=== PATIENT | male | born 1935 | race Caucasian/White ===

== ENCOUNTER 2017-09-14 07:45 | Day surgery (SDC) | payer OTHER ==
[~2017-09-14 07:45] MED LIST: ASPI81 PO; ATOR80TA41 PO; CALC-179 OR; CARV3.125 PO; FISH1000 PO; LISI-357 PO; PLAV75TA PO; TAB-TAB PO; TEMA30CA PO; VITA100017 PO; VITA200017 PO
[2017-09-14 08:25] VITALS: BP 120/81; PULSE 60; RESP 16; TEMP 97; O2SAT 99
[2017-09-14 09:45] VITALS: BP 131/75; PULSE 59; RESP 18; TEMP 97.9; O2SAT 99
[2017-09-14] MEDS ORDERED: LIDOCAINE HCL 1% 20 ML VIAL ONE (09:45)
[2017-09-14 09:58] VITALS: BP 133/81; PULSE 59; RESP 18; O2SAT 99
--- NOTE | 2017-09-14 14:56 | RADRPT ---
EXAM DATE/TIME: 09/14/2017 08:17 [place] COMPARISON: No previous studies available for comparison. INDICATIONS : Enlarged right groin lymph node. MEDICAL HISTORY : Hypertension. Osteoarthritis. Carcinoma, squamous cell. Cataracts. Coronary artery disease. Chest pa in. SURGICAL HISTORY : Tonsillectomy. CABG Right trigger, ring and middle finger surery. Knee arthroscopy. Excision skin le bernie. Herniorrhaphy. ENCOUNTER: Initial ACUITY: 2 months PAIN SCORE: 0/10 LOCATION: Right groin. ORGAN: Right lymph node SPECIMENS: Three core specimen(s) submitted for pathologic evaluation. DEVICE: 18 gauge Temno needle Post procedure scanning reveals no hematoma or other complication. The possibility does exist that the tissue obtained will be non-diagnostic. If the sample is non-jaz gnostic a repeat biopsy or surgical biopsy may need to be performed. TECHNIQUE: 1. Ultrasound guidance for needle biopsy. 2. Needle biopsy. The risks, benefits and alternatives to the procedure were explained and verbal and written consent w as obtained. The site was prepped in sterile fashion. Full sterile technique was used, including ca p, mask, sterile gloves and gown and a large sterile sheet. Hand hygiene and 2% chlorhexidine and/or betadine/alcohol prep was utilized per protocol for cutaneous antisepsis. The skin and subcutaneous tissues were infiltrated with local anesthetic solution. Sterile gel and sterile probe cover were u tilized for ultrasound guidance. With the patient on the ultrasound table, images were obtained. A needle was advanced into the identified target and the number of specimens as above obtained and myles bmitted for pathologic evaluation. The patient tolerated the procedure well and left the ultrasound suite in stable condition. CONCLUSION: Uncomplicated ultrasound guided needle biopsy of right groin lymph node. Gume Davison MD on September 14, 2017 at 14:54 Board Certified Radiologist. This report was verified electronically.
== END 2017-09-14 10:10 | disposition home or self-care (01) ==
LOC: HRAD 07:45 → HRIP 07:50 → HRAD 10:10
PROVIDERS: ATTEND Surgery
DX: R59.0 Localized enlarged lymph nodes (principal)
CPT/HCPCS: 38505; 76942; 88305; 88341; 88342

== ENCOUNTER 2017-10-31 12:43 | Day surgery (SDC) | payer OTHER ==
[2017-10-31 13:18] VITALS: BP 138/80; PULSE 78; RESP 16; TEMP 97.1; O2SAT 99
[2017-10-31 14:30] VITALS: BP_SYST 138; BP_SYST 144; BP_DIAS 82; BP_DIAS 83; PULSE 60; RESP 16; RESP 18; TEMP 97.8; O2SAT 99
--- NOTE | 2017-10-31 14:35 | PD.RAD ---
Post US Procedure Prog Note Pre Procedure Diagnosis: (1) Axillary lymphadenopathy (2) Lymphoma, T-cell Post Procedure Diagnosis: (1) Axillary lymphadenopathy (2) Lymphoma, T-cell Procedure Date: Oct 31, 2017 Supervising Radiologist: Bhanu Rasmussen Proceduralist/Assist: Michelle Nix RDMS Anesthesia: Local Plan of Activity Patient to Unit: ROPU Patient Condition: Good See PACS Report for procedural detail/treatment Biopsy Imaging Guidance: Ultrasound Side: Left Biopsy Procedure: Lymph Node Site: left axilla. Specimen: Core Biopsy Plan to ROPU then discharge in 30 minutes if no problems. Bhanu Rasmussen MD Oct 31, 2017 14:35
[2017-10-31] MEDS ORDERED: LIDOCAINE HCL 1% 20 ML VIAL ONE (14:42)
--- NOTE | 2017-10-31 14:44 | RADRPT ---
EXAM DATE: 10/31/2017 2:37 PM EDT AGE/SEX: 82 years / Male INDICATIONS: Left axillary lymph node. CLINICAL DATA: This is the patient's initial encounter. Patient reports that signs and symptoms have been present for 1 month and indicates a pain score of 0/10. MEDICAL/SURGICAL HISTORY: Hypertension. Osteoarthritis. Coronary artery disease. Tonsillecto my. CABG. Triple bypass. Finger surgery. Knee arthroscopy. Herniorrhaphy. COMPARISON: TLI, PET/CT TUMOR, 10/11/2017. . ORGAN: Left axillary. SPECIMEN(S): Five core specimen(s) submitted for pathologic evaluation. DEVICE(S): 18 gauge Temno needle Post procedure scanning reveals no hematoma or other complication. The possibility does exist that the tissue obtained will be non-diagnostic. If the sample is non-diag nostic, a repeat biopsy or surgical biopsy may need to be performed. TECHNIQUE: 1. Ultrasound guidance for needle biopsy. 2. Needle biopsy. 3. 4. . . The risks, benefits and alternatives to the procedure were explained and verbal and written consent w as obtained. The site was prepped in sterile fashion. Full sterile technique was used, including ca p, mask, sterile gloves and gown and a large sterile sheet. Hand hygiene and 2% chlorhexidine and/or betadine/alcohol prep was utilized per protocol for cutaneous antisepsis. The skin and subcutaneous tissues were infiltrated with local anesthetic solution. Sterile gel and sterile probe cover were u tilized for ultrasound guidance. With the patient on the ultrasound table, images were obtained. There is an enlarged lymph node in t he left axilla. It appears to be enlarged at the poles and correlates with the hypermetabolic lesion on PET imaging. The targeted area measures approximately 1.1 x 0.8 x 1.1 cm which represents one of t he upper poles of the enlarged lymph node. A needle was advanced into the enlarged lymph node and 5 core samples were obtained and submitted for pathologic evaluation. The patient tolerated the procedure well and left the ultrasound suite in stable condition. CONCLUSION: Uncomplicated left axillary lymph node biopsy, as above. Electronically signed by: Bhanu Rasmussen MD 10/31/2017 2:43 PM EDT
[2017-10-31 14:45] VITALS: BP 138/83; PULSE 60; RESP 16; O2SAT 99
[2017-10-31] MEDS ORDERED: ASCO500C (15:15)
[2017-10-31] MEDS ORDERED: CHOL10008 (15:15)
[2017-10-31] MEDS ORDERED: ASPI81CH6 CHEW (15:15)
[2017-10-31] MEDS ORDERED: MONT10TA4 PO (15:15)
[2017-10-31] MEDS ORDERED: TEMA30CA PO (15:15)
[2017-10-31] MEDS ORDERED: PLAV75TA29 PO (15:15)
[2017-10-31] MEDS ORDERED: ATOR80TA45 PO (15:15)
[2017-10-31] MEDS ORDERED: MULTTAB4 (15:15)
[2017-10-31] MEDS ORDERED: CALC1TAB87 PO (15:15)
[2017-10-31] MEDS ORDERED: CARV6.252 PO (15:15)
== END 2017-10-31 14:45 | disposition home or self-care (01) ==
LOC: HRIP 12:43 → HRAD 12:43
PROVIDERS: ATTEND Internal Medicine
DX: C84.44 Peripheral T-cell lymphoma, not elsewhere classified, lymph nodes of axilla and upper limb (principal); I10 Essential (primary) hypertension; I25.10 Atherosclerotic heart disease of native coronary artery without angina pectoris; M19.90 Unspecified osteoarthritis, unspecified site; Z95.1 Presence of aortocoronary bypass graft
CPT/HCPCS: 38505; 76942; 88307

== ENCOUNTER 2017-11-01 10:02 | Day surgery (SDC) | payer OTHER ==
[~2017-11-01] VITALS: Ht 185.4 cm; Wt 92.7 kg
[~2017-11-01 10:02] MED LIST changes: +ASCO500C; -ASPI81 PO; +ASPI81CH6 CHEW; -ATOR80TA41 PO; +ATOR80TA45 PO; -CALC-179 OR; +CALC1TAB87 PO; -CARV3.125 PO; +CARV6.252 PO; +CHOL10008; -FISH1000 PO; -LISI-357 PO; +MONT10TA4 PO; +MULTTAB4; -PLAV75TA PO; +PLAV75TA29 PO; -TAB-TAB PO; -VITA100017 PO; -VITA200017 PO
[2017-11-01] MEDS ORDERED: LIDOCAINE HCL 1% 10 ML VIAL SQ ONE (10:03)
[2017-11-01 10:26] VITALS: BP 125/72; PULSE 69; RESP 18; TEMP 98; O2SAT 97
[2017-11-01 10:44] LABS: AUTOMATED NEUTROPHIL # 2.6 TH/MM3 (1.8-7.7); BASOPHIL # 0.1 TH/MM3 (0-0.2); BASOPHIL % 1.2 % (0.0-2.0); EOSINOPHIL # 0.1 TH/MM3 (0-0.4); EOSINOPHIL % 1.9 % (0.0-4.0); HEMATOCRIT 46.1 % (39.0-51.0); HEMOGLOBIN 15.5 GM/DL (13.0-17.0); LYMPH % 26.5 % (9.0-44.0); LYMPHOCYTE # 1.2 TH/MM3 (1.0-4.8); MEAN CELL VOLUME 97.9 FL (80.0-100.0); MEAN CORPUSCULAR HGB CONC 33.7 % (32.0-36.0); MEAN PLATELET VOLUME 7.2 FL (7.0-11.0); MONO % 11.6 % (0.0-8.0); MONOCYTE # 0.5 TH/MM3 (0-0.9); NEUT % 58.8 % (16.0-70.0); PLATELET COUNT 181 TH/MM3 (150-450); RED BLOOD COUNT 4.71 MIL/MM3 (4.50-5.90); RED CELL DISTRIBUTION WIDTH 13.4 % (11.6-17.2); WHITE BLOOD COUNT 4.5 TH/MM3 (4.0-11.0)
[2017-11-01 10:56] LABS: PROTHROMBIN TIME - PATIENT 10.4 SEC (9.8-11.6)
[2017-11-01] MEDS ORDERED: SODIUM CHLOR 0.9% 1000 ML IV SCH (11:45)
[2017-11-01] MEDS ORDERED: MIDAZOLAM HCL 2 MG/2 ML VIAL ONE (12:15)
--- NOTE | 2017-11-01 12:56 | PD.RAD ---
Post CT Procedure Prog Note Pre Procedure Diagnosis: (1) Lymphoma, T-cell Post Procedure Diagnosis: (1) Lymphoma, T-cell Procedure Date: Nov 01, 2017 Supervising Radiologist: Bhanu Rasmussen Estimated blood loss: minimal . Anesthesia: Conscious Sedation Plan of Activity Patient to Unit: ROPU Patient Condition: Good See PACS Report for procedural detail/treatment Biopsy Imaging Guidance: CT Side: Left Biopsy Procedure: Bone Marrow Site: posterior iliac bone. Plan to ROPU then discharge in 2 hours. Bhanu Rasmussen MD Nov 01, 2017 12:56
[2017-11-01 13:00] VITALS: BP 108/67; PULSE 60; RESP 16; TEMP 97.6; O2SAT 98
[2017-11-01 13:15] VITALS: BP 106/67; PULSE 67; RESP 18; O2SAT 97
[2017-11-01 13:45] VITALS: BP 101/60; PULSE 56; RESP 16; O2SAT 96
--- NOTE | 2017-11-01 14:02 | RADRPT ---
EXAM DATE: 11/01/2017 1:40 PM EDT AGE/SEX: 82 years / Male INDICATIONS: T-cell lymphoma. CLINICAL DATA: This is the patient's initial encounter. Patient reports that signs and symptoms have been present for 1 day and indicates a pain score of 0/10. MEDICAL/SURGICAL HISTORY: Cardiovascular disease. Lymphoma. Hypertension. None. COMPARISON: No prior exams available for comparison. SEDATION TIME (min): 20 min BIOPSY SITE: Left bone marrow MEDICATION(S): 2.5 mg midazolam (Versed) IV 175mcg fentanyl (Sublimaze) IV DEVICE(S): 11 gauge Bone biopsy needle One . . PROCEDURE: CT guided Left bone marrow biopsy Prior to the procedure informed consent was obtained. Any appropriate prior imaging studies were rev iewed. Using automated exposure control and adjustment of the mA and/or kV according to patient size , radiation dose was kept as low as reasonably achievable to obtain optimal diagnostic quality images . DICOM format image data is available electronically for review and comparison. The site was prepped in a sterile fashion. Full sterile technique was used, including cap, mask, shan rile gloves and gown and a large sterile sheet. Hand hygiene and 2% chlorhexidine and/or betadine/al cohol prep was utilized per protocol for cutaneous antisepsis. The skin and subcutaneous tissues wer e infiltrated with local anesthetic solution. With CT guidance the left posterior iliac bone was localized. Biopsy was performed using the prescrib ed needle as above. Following biopsy marrow aspiration was performed with repeat puncture. Adequate hemostasis was obtained with compression at the puncture site. Conscious sedation was performed with the prescribed dosages and duration as above in the presence of an independent trained radiology nurse to assist in the monitoring of the patient. EKG and oximetry remained stable throughout the procedure. The patient tolerated the procedure well and there were no complications. The patient was sent to Radiology Outpatient Unit in stable condition. CONCLUSION: 1. Uncomplicated CT guided bone marrow aspirate. 2. Uncomplicated CT guided bone marrow biopsy. Electronically signed by: Bhanu Rasmussen MD 11/01/2017 2:01 PM EDT
[2017-11-01 14:15] VITALS: BP 106/62; PULSE 60; RESP 18; O2SAT 99
== END 2017-11-01 15:10 | disposition home or self-care (01) ==
LOC: HRAD 10:02 → HRIP 10:07 → HRAD 15:10
PROVIDERS: ATTEND Internal Medicine
DX: C84.44 Peripheral T-cell lymphoma, not elsewhere classified, lymph nodes of axilla and upper limb (principal); I10 Essential (primary) hypertension; I25.10 Atherosclerotic heart disease of native coronary artery without angina pectoris; Z95.1 Presence of aortocoronary bypass graft; Z79.02 Long term (current) use of antithrombotics/antiplatelets; Z79.82 Long term (current) use of aspirin
CPT/HCPCS: 38222; 77012; 85025; 85097; 85610; 85730; 88305; 88311; 88313; 99152; 99153; C1830; J2250; J3010

== ENCOUNTER → 2017-11-13 | Day surgery (SDC) | payer OTHER | END | disposition home or self-care (01) | LOC: HROP 05:57 | PROVIDERS: ATTEND Internal Medicine | DX: Z45.2 Encounter for adjustment and management of vascular access device (principal); C84.44 Peripheral T-cell lymphoma, not elsewhere classified, lymph nodes of axilla and upper limb; I10 Essential (primary) hypertension ==

== ENCOUNTER 2017-11-20 09:39 | Day surgery (SDC) | payer OTHER ==
[~2017-11-20] VITALS: Ht 185.4 cm; Wt 95.0 kg
[2017-11-20] MEDS ORDERED: CHLORHEXIDINE GLUCONATE 2 % 1 PACK (2 CLOTHS) TOPICAL PRN (10:45)
[2017-11-20] MEDS ORDERED: LACTATED RINGER'S 1000 ML IV PRN (10:45)
[2017-11-20] MEDS ORDERED: METOPROLOL TARTRATE 25 MG TAB PO PRN (10:45)
[2017-11-20] MEDS ORDERED: SODIUM CHLORID 0.9% 500 ML IV PRN (10:45)
[2017-11-20] MEDS ORDERED: POVIDONE IODINE 5% (ANTISEPSIS KIT) 4 APPLICATIONS EACH NARE PRN (10:45)
[2017-11-20] MEDS ORDERED: INSULIN HUMAN REGULAR 1,000 UNITS/10 ML VIAL SQ PRN (10:45)
[2017-11-20] MEDS ORDERED: ACETAMINOPHEN 1000 MG/100 ML 100 ML IV SCH (11:00)
[2017-11-20 13:12] VITALS: BP 124/77; PULSE 99; RESP 18; TEMP 97.6; O2SAT 100
[2017-11-20] MEDS ORDERED: fentaNYL CITRATE 250 MCG/5 ML AMP ONE (13:41)
[2017-11-20] MEDS ORDERED: MIDAZOLAM HCL 5 MG/5 ML VIAL ONE (13:41)
[2017-11-20] MEDS ORDERED: ceFAZolin 2 GM PREMIX 50 ML - implanted port/tunneled catheter insertion IV SCH (13:45)
[2017-11-20] MEDS ORDERED: VANCOMYCIN 1000 MG/NS 250 ML - implanted port/tunneled catheter IV SCH ×2 (13:45)
[2017-11-20] MEDS ORDERED: SODIUM CHLORIDE 0.9% 1000 ML IV SCH (13:45)
[2017-11-20] MEDS ORDERED: LIDOCAINE 1%/EPINEPHrine 1:100,000 SOLN 20 ML VIAL ONE (14:41)
[2017-11-20 15:30] VITALS: BP 134/82; PULSE 60; RESP 18; TEMP 97.7; O2SAT 97
[2017-11-20 15:45] VITALS: BP 125/76; PULSE 67; RESP 18; O2SAT 67
[2017-11-20 16:15] VITALS: BP 124/75; PULSE 60; RESP 18; O2SAT 96
--- NOTE | 2017-11-20 16:16 | PD.RAD ---
Post Procedure Progress Note Pre Procedure Diagnosis: (1) Lymphoma, T-cell Post Procedure Diagnosis: (1) Lymphoma, T-cell Procedure Date: Nov 20, 2017 Supervising Radiologist: Arnulfo Shipley Proceduralist/Assist: Leona Kapoor, RT(R)(CV), Shaquille Kurtz, RT(R) Anesthesia: Local, Analgesia, Conscious Sedation Plan of Activity Patient to Unit: ROPU Patient Condition: Good See PACS Report for procedural detail/treatment Central Venous Access Device Procedure 1 Right Internal Jugular Infusaport Placement single lumen Nepali: 8 Arnulfo Shipley MD Nov 20, 2017 16:16
[2017-11-20 16:45] VITALS: BP 126/72; PULSE 62; RESP 18; O2SAT 96
--- NOTE | 2017-11-21 13:42 | RADRPT ---
EXAM DATE: 11/20/2017 3:41 PM EDT AGE/SEX: 82 years / Male INDICATIONS: Patient recently diagnosed with T cell lymphoma. Starting chemotherapy. CLINICAL DATA: This is the patient's initial encounter. Patient reports that signs and symptoms have been present for 2 months and indicates a pain score of 0/10. MEDICAL/SURGICAL HISTORY: Hypertension. Aneurysm, abdominal. Arthritis. cataracts, [place] , CAD, A fib,anemia,CHF, BPH, Defibrillator. CABG. Pacemaker. hernia repair, lymph node biopsy, tendon surgery, colonoscopy. COMPARISON: No prior exams available for comparison. FLUORO TIME (min): 2.33 IMAGE SERIES: 2 SEDATION TIME (min): 30 MEDICATION(S): 2 mg midazolam (Versed) IV 100 mcg fentanyl (Sublimaze) IV Prophylactic antibiotics were administered with appropriate pre-procedure timing. DEVICE(S): Right 8 fr Xcela plus port . . PROCEDURE : 1. Continuous pulse oximetry and EKG monitoring. 2. Intravenous conscious sedation. 3. Ultrasound guidance for venous access. 4. Fluoroscopic guided implantable central venous port placement. The patient was placed supine. The neck was prepped in sterile fashion. Full sterile technique was u sed, including cap, mask, sterile gloves and gown, and a large sterile sheet. Hand hygiene and 2% ch lorhexidine Betadine was utilized per protocol for cutaneous antisepsis with appropriate dry time for site. Sterile gel and sterile probe cover were utilized for ultrasound guidance. The skin and sub cutaneous tissues were infiltrated with local anesthetic solution. Under direct ultrasound guidance, central venous access was accomplished in the targeted vessel. The ultrasound images depicting access guidance were stored and saved to PACS for permanent record. A s ubcutaneous pocket was created using blunt dissection. The port was introduced to the pocket. The c atheter tubing was fed through a subcutaneous tunnel to the venotomy site. The catheter tubing was c ut to a suitable length and then was introduced through a valved Peel-Away sheath and positioned with catheter tubing tip at the cavo-atrial junction level. The pocket incision was closed with subcutic ular Vicryl suture. Steri-Strips were applied. The port was flushed and locked with heparin solutio n per protocol. Sterile dressing was applied to the site. The patient tolerated the procedure well. Conscious sedation was performed with the prescribed dosages and duration as above in the presence of an independent trained radiology nurse to assist in the monitoring of the patient. EKG and oximetry remained stable throughout the procedure. The patient tolerated the procedure well and there were no complications. The patient was sent to post anesthesia recovery in stable condition. CONCLUSION: 1. Uncomplicated ultrasound and fluoroscopic guided implanted central venous port catheter placement as described in detail above. An 8 Thai Power port was placed. Electronically signed by: Arnulfo Shipley MD 11/21/2017 1:41 PM EDT
== END 2017-11-20 17:00 | disposition home or self-care (01) ==
LOC: PHSDC 09:39 → HRIP 12:51 → HROP 17:00
PROVIDERS: ATTEND Surgery
DX: Z45.2 Encounter for adjustment and management of vascular access device (principal); C84.44 Peripheral T-cell lymphoma, not elsewhere classified, lymph nodes of axilla and upper limb; D64.9 Anemia, unspecified; I11.0 Hypertensive heart disease with heart failure; I50.9 Heart failure, unspecified; I25.10 Atherosclerotic heart disease of native coronary artery without angina pectoris; I25.2 Old myocardial infarction; N40.0 Benign prostatic hyperplasia without lower urinary tract symptoms; Z95.0 Presence of cardiac pacemaker; Z95.1 Presence of aortocoronary bypass graft
CPT/HCPCS: 36561; 76937; 77001; 99152; 99153; C1769; C1788; C1887; J0131; J0690; J1642; J2250; J3010; J3370; J7050; J7120

== ENCOUNTER 2017-12-16 10:38 | Observation (INO) ==
[2017-12-16] MEDS ORDERED: Sod Chloride 0.9% Inj 1,000 ML IV.SIG ONE (11:21)
--- NOTE | 2017-12-16 11:31 | ED ---
HPI General Chief Complaint: Syncope Stated Complaint: Syncopal Time Seen by Provider: 12/16/17 11:31 Source: patient and family Mode of arrival: EMS Limitations: no limitations History of Present Illness HPI narrative: 82-year-old male since emergency department for evaluation of a near syncopal episode that occurred while at [employer] today. 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 Patient says that he was assisted to the floor and denies actual loss of consciousness. Patient says this morning he woke up and felt lightheaded but it was able to perform his ADLs and go to [employer]. He says while was at [employer] he began feeling lightheaded again and this is when the incident occurred. He admits to not drinking enough water within the last week or so. Currently he denies fever, chills, chest pain, shortness of breath, abdominal pain. He denies urinary symptoms. Denies head trauma, loss of consciousness, blurred vision, neck pain, back pain. says that he completed a course of chemotherapy on Sunday for T-cell lymphoma. He has a history of coronary artery disease status post CABG 3, procedure, hyperlipidemia. 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 His primary care physician is Dr. Dugan, cardiology Dr. Oakes, oncologist Dr. Arias. He does have an AICD/Pacemaker. Related Data Home Medications Medication Instructions Recorded Confirmed ascorbic acid (vitamin C) [Vitamin 500 mg PO DAILY 11/27/17 12/16/17 C] aspirin [Aspir-81] 81 mg PO DAILY 11/27/17 12/16/17 atorvastatin 80 mg PO DAILY 11/27/17 12/16/17 calcium carbonate-vitamin D3 600 mg PO DAILY 11/27/17 12/16/17 [Calcium 600 + D(3)] carvedilol 6.25 mg PO BID 11/27/17 12/16/17 cholecalciferol (vitamin D3) 1,000 unit PO DAILY 11/27/17 12/16/17 [Vitamin D3] clopidogrel 75 mg PO DAILY 11/27/17 12/16/17 montelukast 10 mg PO QPM 11/27/17 12/16/17 temazepam [Restoril] 30 mg PO HS PRN 12/16/17 12/16/17 Allergies Allergy/AdvReac Type Severity Reaction Status Date / Time No Known Allergies Allergy Unknown Uncoded 11/20/17 10:34 Review of Systems Except as stated in HPI: all other systems reviewed are negative [facility] Medical History Medical History CAD (coronary artery disease) (Acute) Pacemaker (Acute) Port-A-Cath in place (Acute) Anxiety (Acute) HTN (hypertension) (Acute) Hyperlipidemia (Acute) ICD (implantable cardioverter-defibrillator) in place (Acute) Myocardial infarct, old (Acute) T-cell lymphoma (Acute) Surgical History Surgical History H/O hernia repair (Acute) History of tonsillectomy (Acute) S/P CABG x 3 (Acute) Social History Social History Substance History: No History of Abuse Second Hand Smoke Exposure: No Smoking Status: Former smoker How Often Do You Have a Drink Containing Alcohol: Monthly or less Recent Travel in [facility] within the Last 8 Weeks: No Recent Out of Country Travel within the Last 8 Weeks: No Exam Narrative Exam Narrative: GENERAL:in NAD SKIN: Focused skin assessment warm/dry. HEAD: Atraumatic. Normocephalic. EYES: Pupils equal and round. No scleral icterus. No injection or drainage. ENT: No nasal bleeding or discharge. Mucous membranes pink and moist. NECK: Trachea midline. No JVD. CARDIOVASCULAR: Regular rate and rhythm. No murmur appreciated. RESPIRATORY: No accessory muscle use. Clear to auscultation. Breath sounds equal bilaterally. GASTROINTESTINAL: Abdomen soft, non-tender, nondistended. MUSCULOSKELETAL: No obvious deformities. No clubbing. No cyanosis. No edema. Homans sign negative bilaterally NEUROLOGICAL: Awake and alert. No obvious cranial nerve deficits. Motor grossly within normal limits. Normal speech. PSYCHIATRIC: Appropriate mood and affect; insight and judgment normal. Course Reevaluation(s) Reevaluation #1: Patient updated and agrees to observation given cardiac risk factors. Consultations Consultation #1: resident team agrees to admit Initial Documented Vital Signs Pulse Rate 60 12/16/17 10:44 Respiratory Rate 16 12/16/17 10:44 Blood Pressure 111/56 L 12/16/17 10:44 Pulse Oximetry 96 12/16/17 10:44 Last Documented Vital Signs Pulse Rate 60 12/16/17 12:09 Respiratory Rate 15 12/16/17 12:09 Blood Pressure 103/59 L 12/16/17 12:09 Pulse Oximetry 98 12/16/17 12:09 Medical Decision Making OSWALD Attestation OSWALD supervised visit: Yes Attestation: I, Dr. cintron, have reviewed the advance practice practitioner's documentation and am in agreement, met with the patient face to face, made the diagnosis, and the medical decision making was done by me. *My assessment and Findings: 82-year-old male presents with near syncopal event. Initial ER workup without emergent process. Agrees to observation given cardiac risk factors MDM Narrative Medical decision making narrative: 82-year-old male presents emergency department evaluation of a near syncopal episode that occurred while at [employer] today. Patient states that he felt lightheaded this morning but was able to perform his ADLs to go to [employer]. 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 Upon initial evaluation, patient denies any complaints. Family and patient described the event at [employer] as patient appeared pale and somewhat lethargic and he was assisted to the ground. No head trauma. Patient was then transported to [facility] for evaluation. His vital signs are stable although mildly hypotensive. Labs and imaging studies are ordered. 1 L normal saline administered. Differential Diagnosis Differential Diagnosis: Dehydration, vasovagal syncope, altered mental status Lab Data Lab results reviewed: Yes I reviewed the patient's lab results. Result diagrams: 12/16/17 11:55 12/16/17 11:55 Lab Results 12/16/17 12/16/17 12/16/17 Range/Units 11:55 11:55 11:55 WBC 6.5 (4.0-11.0) th/mm3 RBC 3.61 L (4.50-5.90) mil/mm3 Hgb 11.8 L (13.0-17.0) gm/dL Hct 34.8 L (39.0-51.0) % MCV 96.5 (80.0-100.0) fL MCH 32.6 (27.0-34.0) pg MCHC 33.8 (32.0-36.0) % RDW 13.4 (11.6-17.2) % Plt Count 193 (150-450) th/mm3 MPV 7.2 (7.0-11.0) fL Neut % (Auto) 92.1 H (16.0-70.0) % Lymph % (Auto) 7.1 L (9.0-44.0) % [place] % (Auto) 0.6 (0.0-8.0) % Eos % (Auto) 0.1 (0.0-4.0) % Baso % (Auto) 0.1 (0.0-2.0) % Neut # (Auto) 6.0 (1.8-7.7) th/mm3 Lymph # (Auto) 0.5 L (1.0-4.8) th/mm3 [place] # (Auto) 0.0 (0.0-0.9) th/mm3 Eos # (Auto) 0.0 (0.0-0.4) th/mm3 Baso # (Auto) 0.0 (0.0-0.2) th/mm3 WBC Differential . Differential Comment Auto diff final PT 10.8 (9.8-11.6) sec INR 1.1 Ratio APTT 22.8 L (24.3-30.1) sec Sodium 141 (136-145) meq/L Potassium 4.4 (3.5-5.1) meq/L Chloride 105 (98-107) meq/L Carbon Dioxide 31.2 (21.0-32.0) meq/L Anion Gap 5 (5-15) meq/L BUN 18 (7-18) mg/dL Creatinine 0.89 (0.60-1.30) mg/dL Estimated GFR 82 L (>89) mL/min Random Glucose 89 (74-106) mg/dL Calcium 8.4 L (8.5-10.1) mg/dL Total Bilirubin 0.8 (0.2-1.0) mg/dL AST 16 (15-37) U/L ALT 24 (12-78) U/L Alkaline Phosphatase 52 (45-117) U/L Total Creatine Kinase 41 (39-308) U/L Troponin I Less than 0.02 L (0.02-0.05) ng/mL Total Protein 6.0 L D (6.4-8.2) g/dL Albumin 3.0 L (3.4-5.0) g/dL Urine Color (Yellw/Straw) Urine Clarity (Clear) Urine pH (5.0-8.5) Ur Specific [place] (1.002-1.035) Urine Protein (Neg-Trace) mg/dL Urine Glucose (UA) (Negative) mg/dL Urine Ketones (Negative) mg/dL Urine Occult Blood (Negative) Urine Nitrate (Negative) Urine Bilirubin (Negative) Urine Urobilinogen (Less than 2) mg/dL Ur Leukocyte Esterase (Negative) Urine RBC (0-3) /hpf Urine WBC (0-5) /hpf Hyaline Casts (0-3) /lpf Urine Mucus (Occasional) /lpf Micro UA Comment Urine Culture Comments 12/16/17 Range/Units 13:00 WBC (4.0-11.0) th/mm3 RBC (4.50-5.90) mil/mm3 Hgb (13.0-17.0) gm/dL Hct (39.0-51.0) % MCV (80.0-100.0) fL MCH (27.0-34.0) pg MCHC (32.0-36.0) % RDW (11.6-17.2) % Plt Count (150-450) th/mm3 MPV (7.0-11.0) fL Neut % (Auto) (16.0-70.0) % Lymph % (Auto) (9.0-44.0) % [place] % (Auto) (0.0-8.0) % Eos % (Auto) (0.0-4.0) % Baso % (Auto) (0.0-2.0) % Neut # (Auto) (1.8-7.7) th/mm3 Lymph # (Auto) (1.0-4.8) th/mm3 [place] # (Auto) (0.0-0.9) th/mm3 Eos # (Auto) (0.0-0.4) th/mm3 Baso # (Auto) (0.0-0.2) th/mm3 WBC Differential Differential Comment PT (9.8-11.6) sec INR Ratio APTT (24.3-30.1) sec Sodium (136-145) meq/L Potassium (3.5-5.1) meq/L Chloride (98-107) meq/L Carbon Dioxide (21.0-32.0) meq/L Anion Gap (5-15) meq/L BUN (7-18) mg/dL Creatinine (0.60-1.30) mg/dL Estimated GFR (>89) mL/min Random Glucose (74-106) mg/dL Calcium (8.5-10.1) mg/dL Total Bilirubin (0.2-1.0) mg/dL AST (15-37) U/L ALT (12-78) U/L Alkaline Phosphatase (45-117) U/L Total Creatine Kinase (39-308) U/L Troponin I (0.02-0.05) ng/mL Total Protein (6.4-8.2) g/dL Albumin (3.4-5.0) g/dL Urine Color Yellow (Yellw/Straw) Urine Clarity Clear (Clear) Urine pH 6.0 (5.0-8.5) Ur Specific [place] 1.009 (1.002-1.035) Urine Protein Negative (Neg-Trace) mg/dL Urine Glucose (UA) Negative (Negative) mg/dL Urine Ketones Negative (Negative) mg/dL Urine Occult Blood Negative (Negative) Urine Nitrate Negative (Negative) Urine Bilirubin Negative (Negative) Urine Urobilinogen Less than 2 (Less than 2) mg/dL Ur Leukocyte Esterase Negative (Negative) Urine RBC Less than 1 (0-3) /hpf Urine WBC Less than 1 (0-5) /hpf Hyaline Casts 1 (0-3) /lpf Urine Mucus Few H (Occasional) /lpf Micro UA Comment Culture not ind Urine Culture Comments Culture not ind Imaging Data Attestation: I personally reviewed and interpreted this imaging study as follows : Radiologist's impression: Chest X-Ray 12/16/17 11:21 CONCLUSION: 1. Mild cardiomegaly with no evidence of pulmonary edema. 2. The left lateral chest wall and costophrenic angle cut off the exam. Discharge Plan Discharge Disposition Patient Disposition: 30 Still Patient Discharge Details Diagnosis: Near syncope Physicians Team ED Provider: Fabiana Cintron ED Midlevel Provider: Haleigh Mesa Primary Care Provider: Stephany Moreno Rxs /Orders / Referrals /Forms Prescriptions: No Action atorvastatin 80 mg Tablet 80 mg PO DAILY RF: 0 carvedilol 6.25 mg Tablet 6.25 mg PO BID RF: 0 clopidogrel 75 mg Tablet 75 mg PO DAILY RF: 0 aspirin [Aspir-81] 81 mg Tablet,Delayed Release (Dr/Ec) 81 mg PO DAILY RF: 0 ascorbic acid (vitamin C) [Vitamin C] 500 mg Tablet 500 mg PO DAILY RF: 0 montelukast 10 mg Tablet 10 mg PO QPM RF: 0 cholecalciferol (vitamin D3) [Vitamin D3] 1,000 unit Capsule 1,000 unit PO DAILY RF: 0 calcium carbonate-vitamin D3 [Calcium 600 + D(3)] 600 mg calcium- 200 unit Capsule 600 mg PO DAILY RF: 0 temazepam [Restoril] 30 mg Capsule 30 mg PO HS PRN (Reason: Sleep) RF: 0 Discharge Interventions Interventions: Vital Signs Last Done: 12/16/17 12:09 Status ED Status: Admitted Observation Patient
--- NOTE | 2017-12-16 12:03 | XR ---
EXAM DATE: 12/16/2017 11:55 AM EDT AGE/SEX: 82 years / Male INDICATIONS: Cardiac disease. CLINICAL DATA: This is the patient's initial encounter. Patient reports that signs and symptoms have been present for 1 day and indicates a pain score of 0/10. MEDICAL/SURGICAL HISTORY: . Hyperthyroidism. Lymphoma. Myocardial infarct. . Port. CABG. COMPARISON: No prior exams available for comparison. FINDINGS: A single AP erect portable view of the chest was obtained and demonstrates the patient is status post median sternotomy. There is a right-sided implantable port catheter in place and left subclavian A-V sequential transvenous pacer with defibrillator lead. The heart size is mildly enlarged with no evangelina hilar edema. Portions of the left lateral chest wall and costophrenic angle cut off the exam. The rig ht lung is clear. Atherosclerotic changes are present in the aorta. CONCLUSION: 1. Mild cardiomegaly with no evidence of pulmonary edema. 2. The left lateral chest wall and costophrenic angle cut off the exam. Electronically signed by: Darrius Parker MD 12/16/2017 12:02 PM EDT
[2017-12-16 12:44] LABS: Baso % (Auto) 0.1 % (0.0-2.0); Eos % (Auto) 0.1 % (0.0-4.0); Hematocrit 34.8 % (39.0-51.0); Hemoglobin 11.8 gm/dL (13.0-17.0); Lymph # (Auto) 0.5 th/mm3 (1.0-4.8); Lymph % (Auto) 7.1 % (9.0-44.0); Mean Corpuscular HGB Conc 33.8 % (32.0-36.0); Mean Corpuscular Hemoglobin 32.6 pg (27.0-34.0); Mean Corpuscular Volume 96.5 fL (80.0-100.0); Mean Platelet Volume 7.2 fL (7.0-11.0); Mono % (Auto) 0.6 % (0.0-8.0); Neut % (Auto) 92.1 % (16.0-70.0); Platelet Count 193 th/mm3 (150-450); Red Blood Count 3.61 mil/mm3 (4.50-5.90); Red Cell Distribution Width 13.4 % (11.6-17.2); White Blood Count 6.5 th/mm3 (4.0-11.0)
[2017-12-16 13:00] LABS: Alanine Aminotransferase 24 U/L (12-78); Anion Gap 5 meq/L (5-15); Aspartate Aminotransferase 16 U/L (15-37); Blood Urea Nitrogen 18 mg/dL (7-18); Calcium 8.4 mg/dL (8.5-10.1); Carbon Dioxide 31.2 meq/L (21.0-32.0); Chloride 105 meq/L (98-107); Glomerular Filtration Rate 82 mL/min (>89); Glucose,Random 89 mg/dL (74-106); Potassium 4.4 meq/L (3.5-5.1); Sodium 141 meq/L (136-145)
[2017-12-16 13:04] LABS: Alkaline Phosphatase 52 U/L (45-117)
[2017-12-16 13:08] LABS: Activated Partial Thrombo Time 22.8 sec (24.3-30.1); INR 1.1 Ratio; Prothrombin Time 10.8 sec (9.8-11.6)
[2017-12-16 13:09] LABS: Creatine Kinase 41 U/L (39-308)
[2017-12-16 13:40] LABS: Bilirubin,Urine Negative (Negative); Color,Urine Yellow (Yellw/Straw); Glucose,Urine (UA) Negative (Negative); Hyaline Casts,Urine 1 /lpf (0-3); Leukocyte Esterase,Urine Negative (Negative); Mucus,Urine Few /lpf (Occasional); Nitrite,Urine Negative (Negative); Specific Gravity,Urine 1.009 (1.002-1.035)
[2017-12-16 13:43] LABS: Clarity,Urine Clear (Clear)
--- NOTE | 2017-12-16 15:25 | P.HPFP ---
History of Present Illness Primary Care Physician: Stephany Moreno MD <Mavis Diaz - 12/16/17 20:57> Stephany Moreno MD <Mally Katz - 12/16/17 20:01> History of Present Illness: 82 Year old M with significant past cardiac history , currently with ICD and Pacemaker, presents to ED today because of witnessed syncopal episode. Patient states that he got up this morning and felt lightheaded. He then walked around his house and the lightheadedness subsided. He then went to religious where he met Dr. Garcia who encouraged him to drink some water. While drinking the water he said that he suddenly couldn't swallow anymore and that the water he drank was coming out of his nose and mouth. Per his daughter who was sitting beside him, "it seemed as though he was looking straight ahead staring at the ground". The daughter said he was pale, with water coming out of his nostrils and mouth. His and daughter then put him on the ground and laid him to his side. Checked his BP and Heart rate which seemed to be normal at the time. His pacemaker was checked at the time and was reported to be pacing his heart at a normal rate. Patient denies LOC and remembers the event. Patient started to feel better once they laid him down on the ground. Patient states that he was feeling lightheadedness for the past 2 days after his last last Chemotherapy which was on Sunday. This has never happened in the past. 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 PSH: Four hernia repairs, Triple Bypass in 1989. Upper Right Port for Chemotherapy. A: NKDA Meds: See Med Rec FH: Family members of Cardiac Issues Early in Life. SH: Lives at home with . Smoked as a teenager but has not since. Denies any alcohol use. Denies any drug use. <Mally Katz - 12/16/17 20:01> - Diagnosis (1) Near syncope (2) Constipation (3) Hypertension (4) CHF (congestive heart failure) (5) Nutrition, metabolism, and development symptoms (6) DVT prophylaxis <Mavis Diaz - 12/16/17 20:57> (1) Near syncope (2) Constipation (3) Hypertension (4) CHF (congestive heart failure) (5) Nutrition, metabolism, and development symptoms (6) DVT prophylaxis <Mally Katz 12/16/17 20:02> Review of Systems Constitutional: Reports weight gain, Denies chills, Denies fever(s), Denies weight loss <GiannaMally 12/16/17 15:29> Comments: 8 lbs recently <GiannaMally 12/16/17 15:29> Eyes: Denies blurry vision, Denies floaters, Denies loss of vision <Gianna Mally 12/16/17 15:29> Cardiovascular: Denies chest pain, Denies irregular heart rhythm, Denies lightheadedness, Denies shortness of breath <GiannaMally 12/16/17 15:29> Respiratory: Denies cough, Denies shortness of breath <GiannaMally 15:29> Gastrointestinal: Reports change in bowel habits, Denies abdominal pain, Denies black, tarry stools, Denies bright, red blood in stools, Denies nausea, Denies vomiting <GiannaMally 12/16/17 15:29> Comments: patient is constipated. On Mirilax to help with bowel regimen. 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 <Mavis Diaz - 12/16/17 20:57> Medical History (Last Reviewed 12/16/17 @ 15:02 by Fabiana Cintron MD) CAD (coronary artery disease) Pacemaker Port-A-Cath in place Anxiety HTN (hypertension) Hyperlipidemia ICD (implantable cardioverter-defibrillator) in place Myocardial infarct, 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 <BreemichelefamMally 12/16/17 15:25> - Surgical History Surgical History: Surgical History (Last Reviewed 12/16/17 @ 15:02 by Fabiana Cintron MD) H/O hernia repair History of tonsillectomy S/P CABG x 3 <Mavis iDaz - 12/16/17 20:57> Surgical History (Last Reviewed 12/16/17 @ 15:02 by Fabiana Cintron MD) H/O hernia repair History of tonsillectomy S/P CABG x 3 <GiannaMally 12/16/17 15:25> - Tobacco History Second Hand Smoke Exposure: No <GiannaMally 12/16/17 15:25> Tobacco Use In Past 30 Days: No <BreeedinsonMally 12/16/17 15:25> Smoking Status: Former smoker <BreeedinsonMally 12/16/17 15:25> - Alcohol History How Often Do You Have a Drink Containing Alcohol: Monthly or less <Gianna Mally 12/16/17 15:25> - Substance Use History Substance History: No History of Abuse <BreemichelefamMally 12/16/17 15:25> - Travel History Recent Travel in the [facility] Within the Last 8 Weeks: No <BreeedinsonMally 15:25> Recent Travel Out of the Country Within the Last 8 Weeks: No <BreeedinsonMally 12/16/17 15:25> - Immunization History Tetanus Immunization: Never Vaccinated <GiannaMally 12/16/17 15:25> Hx Influenza Vaccine This Season: No <BreeedinsonMally 12/16/17 15:25> Medications and Allergies Allergies Allergy/AdvReac Type Severity Reaction Status Date / Time No Known Allergies Allergy Verified 12/16/17 20:25 <Mavis Diaz 12/16/17 20:57> Home Medications Medication Instructions Recorded Confirmed Type ascorbic acid (vitamin C) [Vitamin 500 mg PO DAILY 11/27/17 12/16/17 History C] aspirin [Aspir-81] 81 mg PO DAILY 11/27/17 12/16/17 History atorvastatin 80 mg PO DAILY 11/27/17 12/16/17 History calcium carbonate-vitamin D3 600 mg PO DAILY 11/27/17 12/16/17 History [Calcium 600 + D(3)] carvedilol 6.25 mg PO BID 11/27/17 12/16/17 History cholecalciferol (vitamin D3) 1,000 unit PO DAILY 11/27/17 12/16/17 History [Vitamin D3] clopidogrel 75 mg PO DAILY 11/27/17 12/16/17 History montelukast 10 mg PO QPM 11/27/17 12/16/17 History temazepam [Restoril] 30 mg PO HS PRN 12/16/17 12/16/17 History <Mavis Diaz - 12/16/17 20:57> Active Medications: Active Medications Al Hydroxide/Mg Hydroxide (Milk Of Magnesia Liq) 30 ml PO Q12H PRN PRN Reason: Mild Constipation Atorvastatin Calcium (Lipitor) 80 mg PO DAILY [facility] Last Admin: 12/16/17 20:06 Dose: Not Given Bisacodyl (Dulcolax Supp) 10 mg RECTAL DAILY PRN PRN Reason: SEVERE CONSITIPATION Carvedilol (Coreg) 6.25 mg PO BID [facility] Sodium Chloride (Ns Inj) 1,000 mls @ 70 mls/hr IV.CONT .[id number] [facility] Last Admin: 12/16/17 18:27 Dose: 70 mls/hr Lactulose (Lactulose Liq) 30 ml PO DAILY PRN PRN Reason: SEVERE CONSITIPATION Sennosides (Senokot) 17.2 mg PO Q12H PRN PRN Reason: Moderate Constipation Last Admin: 12/16/17 18:41 Dose: 17.2 mg Temazepam (Restoril) 30 mg PO HS PRN PRN Reason: Sleep <Mavis Diaz - 12/16/17 20:57> Exam Vital signs: Vital Signs 12/16/17 10:44 12/16/17 11:55 12/16/17 12:09 Temperature Pulse Rate 60 60 Respiratory Rate 16 15 Blood Pressure 111/56 L 103/59 L Pulse Oximetry 96 95 98 12/16/17 16:33 12/16/17 17:41 Temperature 97.4 F L Pulse Rate 57 L Respiratory Rate 19 Blood Pressure 121/65 Pulse Oximetry 98 98 Intake & Output 12/16/17 12/16/17 12/17/17 06:59 18:59 06:59 Weight 96.162 kg Other: Date of Last Bowel Movement 12/16/17 <JoeMavis - 12/16/17 20:57> Vital Signs 12/16/17 10:44 12/16/17 11:55 12/16/17 12:09 Pulse Rate 60 60 Respiratory Rate 16 15 Blood Pressure 111/56 L 103/59 L Pulse Oximetry 96 95 98 Intake & Output 12/15/17 12/16/17 12/16/17 18:59 06:59 18:59 Weight 96.162 kg <Mally Katz 12/16/17 15:25> - Constitutional no acute distress, average body habitus <Mally Katz 12/16/17 16:11> - Routine HEENT Exam Head: Present: normocephalic, atraumatic <Mally Katz 12/16/17 16:11> - Routine Respiratory Exam Present: CTA bilaterally. Absent: rales, rhonchi <Mally Katz 12/16/17 16:11> - Routine Cardiovascular Exam Present: RRR, S1, S2 <Mally Katz 12/16/17 16:11> - Routine Abdominal Exam Present: soft, normoactive bowel sounds. Absent: tenderness, distended <Mally Katz 12/16/17 16:11> - Routine Neurological Exam General: This is a well appearing male in NAD Mental status: patient is alert, awake, and oriented to person, place and time. Speech is clear and fluent with good repetition, comprehension and naming. CN: 2-12 intact Motor: Muscle Bulk and tone are normal in the Upper and Lower Ext. Strenght it 5/5 in Deltoid, Biceps, Triceps, Wrist Extension, Hip Flexion, Hip extension, Knee Extension and Flexion, Ankle Flexion and extension. Coordination: No dysmetria on finger to nose testing. Tandem gait is normal, heel to toe walking is normal. Overall Gait: Normal. <Mally Katz 12/16/17 16:11> Results - Labs Result diagrams: 12/16/17 11:55 12/16/17 11:55 <Mavis Diaz - 12/16/17 20:57> Abnormal lab results 12/16/17 12/16/17 12/16/17 Range/Units 11:55 11:55 11:55 RBC 3.61 L (4.50-5.90) mil/mm3 Hgb 11.8 L (13.0-17.0) gm/dL Hct 34.8 L (39.0-51.0) % Neut % (Auto) 92.1 H (16.0-70.0) % Lymph % (Auto) 7.1 L (9.0-44.0) % Lymph # (Auto) 0.5 L (1.0-4.8) th/mm3 APTT 22.8 L (24.3-30.1) sec Estimated GFR 82 L (>89) mL/min Calcium 8.4 L (8.5-10.1) mg/dL Troponin I Less than 0.02 L (0.02-0.05) ng/mL Total Protein 6.0 L D (6.4-8.2) g/dL Albumin 3.0 L (3.4-5.0) g/dL Cholesterol (120-200) mg/dL Urine Mucus (Occasional) /lpf 12/16/17 12/16/17 Range/Units 11:55 13:00 RBC (4.50-5.90) mil/mm3 Hgb (13.0-17.0) gm/dL Hct (39.0-51.0) % Neut % (Auto) (16.0-70.0) % Lymph % (Auto) (9.0-44.0) % Lymph # (Auto) (1.0-4.8) th/mm3 APTT (24.3-30.1) sec Estimated GFR (>89) mL/min Calcium (8.5-10.1) mg/dL Troponin I (0.02-0.05) ng/mL Total Protein (6.4-8.2) g/dL Albumin (3.4-5.0) g/dL Cholesterol 108 L (120-200) mg/dL Urine Mucus Few H (Occasional) /lpf Short CBC 12/16/17 Range/Units 11:55 WBC 6.5 (4.0-11.0) th/mm3 Hgb 11.8 L (13.0-17.0) gm/dL Hct 34.8 L (39.0-51.0) % Plt Count 193 (150-450) th/mm3 BMP 12/16/17 11:55 Sodium 141 Potassium 4.4 Chloride 105 Carbon Dioxide 31.2 BUN 18 Creatinine 0.89 Calcium 8.4 L Cardiac Enzymes 12/16/17 Range/Units 11:55 Total Creatine Kinase 41 (39-308) U/L Troponin I Less than 0.02 L (0.02-0.05) ng/mL Liver Function 12/16/17 Range/Units 11:55 Total Bilirubin 0.8 (0.2-1.0) mg/dL AST 16 (15-37) U/L ALT 24 (12-78) U/L Alkaline Phosphatase 52 (45-117) U/L Albumin 3.0 L (3.4-5.0) g/dL Urine 12/16/17 Range/Units 13:00 Urine Color Yellow (Yellw/Straw) Urine Clarity Clear (Clear) Urine pH 6.0 (5.0-8.5) Ur Specific [place] 1.009 (1.002-1.035) Urine Protein Negative (Neg-Trace) mg/dL Urine Glucose (UA) Negative (Negative) mg/dL <Mavis Diaz - 12/16/17 20:57> Abnormal lab results 12/16/17 12/16/17 12/16/17 Range/Units 11:55 11:55 11:55 RBC 3.61 L (4.50-5.90) mil/mm3 Hgb 11.8 L (13.0-17.0) gm/dL Hct 34.8 L (39.0-51.0) % Neut % (Auto) 92.1 H (16.0-70.0) % Lymph % (Auto) 7.1 L (9.0-44.0) % Lymph # (Auto) 0.5 L (1.0-4.8) th/mm3 APTT 22.8 L (24.3-30.1) sec Estimated GFR 82 L (>89) mL/min Calcium 8.4 L (8.5-10.1) mg/dL Troponin I Less than 0.02 L (0.02-0.05) ng/mL Total Protein 6.0 L D (6.4-8.2) g/dL Albumin 3.0 L (3.4-5.0) g/dL Urine Mucus (Occasional) /lpf 12/16/17 Range/Units 13:00 RBC (4.50-5.90) mil/mm3 Hgb (13.0-17.0) gm/dL Hct (39.0-51.0) % Neut % (Auto) (16.0-70.0) % Lymph % (Auto) (9.0-44.0) % Lymph # (Auto) (1.0-4.8) th/mm3 APTT (24.3-30.1) sec Estimated GFR (>89) mL/min Calcium (8.5-10.1) mg/dL Troponin I (0.02-0.05) ng/mL Total Protein (6.4-8.2) g/dL Albumin (3.4-5.0) g/dL Urine Mucus Few H (Occasional) /lpf Short CBC 12/16/17 Range/Units 11:55 WBC 6.5 (4.0-11.0) th/mm3 Hgb 11.8 L (13.0-17.0) gm/dL Hct 34.8 L (39.0-51.0) % Plt Count 193 (150-450) th/mm3 BMP 12/16/17 11:55 Sodium 141 Potassium 4.4 Chloride 105 Carbon Dioxide 31.2 BUN 18 Creatinine 0.89 Calcium 8.4 L Cardiac Enzymes 12/16/17 Range/Units 11:55 Total Creatine Kinase 41 (39-308) U/L Troponin I Less than 0.02 L (0.02-0.05) ng/mL Liver Function 12/16/17 Range/Units 11:55 Total Bilirubin 0.8 (0.2-1.0) mg/dL AST 16 (15-37) U/L ALT 24 (12-78) U/L Alkaline Phosphatase 52 (45-117) U/L Albumin 3.0 L (3.4-5.0) g/dL Urine 12/16/17 Range/Units 13:00 Urine Color Yellow (Yellw/Straw) Urine Clarity Clear (Clear) Urine pH 6.0 (5.0-8.5) Ur Specific [place] 1.009 (1.002-1.035) Urine Protein Negative (Neg-Trace) mg/dL Urine Glucose (UA) Negative (Negative) mg/dL <Mally Katz - 12/16/17 15:25> - Imaging Impressions Head CT 12/16/17 00:00 CONCLUSION: 1. Age-appropriate atrophy. No acute findings. . Chest X-Ray 12/16/17 11:21 CONCLUSION: 1. Mild cardiomegaly with no evidence of pulmonary edema. 2. The left lateral chest wall and costophrenic angle cut off the exam. <Mavis Diaz - 12/16/17 20:57> Impressions Chest X-Ray 12/16/17 11:21 CONCLUSION: 1. Mild cardiomegaly with no evidence of pulmonary edema. 2. The left lateral chest wall and costophrenic angle cut off the exam. <Mally Katz - 12/16/17 15:25> Caprini VTE Risk Assessment Caprini VTE Risk Assessment: Moderate/High Risk (score >= 2) <Mally Katz - 12/16/17 20:03> Caprini Risk Assessment Model: Point Value = 1 Point Value = 2 Point Value = 3 Point Value = 5 Age 41-60 Minor surgery BMI > 25 kg/m2 Swollen legs Varicose veins or History of unexplained or recurrent spontaneous Oral contraceptives or hormone replacement Sepsis (< 1 month) Serious lung disease, including pneumonia (< 1 month) Abnormal pulmonary function Acute myocardial infarction Congestive heart failure (< 1 month) History of inflammatory bowel disease Medical patient at bed rest Age 61-74 Arthroscopic surgery Major open surgery (> 45 min) Laparoscopic surgery (> 45 min) Malignancy Confined to bed (> 72 hours) Immobilizing plaster cast Central venous access Age >= 75 History of VTE Family history of VTE Factor V Leiden Prothrombin [id number] Lupus anticoagulant Anticardiolipin antibodies Elevated serum homocysteine Heparin-induced thrombocytopenia Other congenital or acquired thrombophilia Stroke (< 1 month) Elective arthroplasty Hip, pelvis, or leg fracture Acute spinal cord injury (< 1 month) <Mavis Diaz - 12/16/17 20:57> Point Value = 1 Point Value = 2 Point Value = 3 Point Value = 5 Age 41-60 Minor surgery BMI > 25 kg/m2 Swollen legs Varicose veins or History of unexplained or recurrent spontaneous Oral contraceptives or hormone replacement Sepsis (< 1 month) Serious lung disease, including pneumonia (< 1 month) Abnormal pulmonary function Acute myocardial infarction Congestive heart failure (< 1 month) History of inflammatory bowel disease Medical patient at bed rest Age 61-74 Arthroscopic surgery Major open surgery (> 45 min) Laparoscopic surgery (> 45 min) Malignancy Confined to bed (> 72 hours) Immobilizing plaster cast Central venous access Age >= 75 History of VTE Family history of VTE Factor V Leiden Prothrombin [id number] Lupus anticoagulant Anticardiolipin antibodies Elevated serum homocysteine Heparin-induced thrombocytopenia Other congenital or acquired thrombophilia Stroke (< 1 month) Elective arthroplasty Hip, pelvis, or leg fracture Acute spinal cord injury (< 1 month) <Mally Katz - 12/16/17 15:25> Prophylaxis Regimen: Total Risk Factor Score Risk Level Prophylaxis Regimen 0-1 Low Early ambulation 2 Moderate Order ONE of the following: *Sequential Compression Device (SCD) *Heparin 5000 units SQ BID 3-4 Higher Order ONE of the following medications: *Heparin 5000 units SQ TID *Enoxaparin/Lovenox 40 mg SQ daily (WT < 150 kg, CrCl > 30 mL/min) *Enoxaparin/Lovenox 30 mg SQ daily (WT < 150 kg, CrCl > 10-29 mL/min) *Enoxaparin/Lovenox 30 mg SQ BID (WT < 150 kg, CrCl > 30 mL/min) AND/OR *Sequential Compression Device (SCD) 5 or more Highest Order ONE of the following medications: *Heparin 5000 units SQ TID (Preferred with Epidurals) *Enoxaparin/Lovenox 40 mg SQ daily (WT < 150 kg, CrCl > 30 mL/min) *Enoxaparin/Lovenox 30 mg SQ daily (WT < 150 kg, CrCl > 10-29 mL/min) *Enoxaparin/Lovenox 30 mg SQ BID (WT < 150 kg, CrCl > 30 mL/min) AND *Sequential Compression Device (SCD) <Mavis Diaz - 12/16/17 20:57> Total Risk Factor Score Risk Level Prophylaxis Regimen 0-1 Low Early ambulation 2 Moderate Order ONE of the following: *Sequential Compression Device (SCD) *Heparin 5000 units SQ BID 3-4 Higher Order ONE of the following medications: *Heparin 5000 units SQ TID *Enoxaparin/Lovenox 40 mg SQ daily (WT < 150 kg, CrCl > 30 mL/min) *Enoxaparin/Lovenox 30 mg SQ daily (WT < 150 kg, CrCl > 10-29 mL/min) *Enoxaparin/Lovenox 30 mg SQ BID (WT < 150 kg, CrCl > 30 mL/min) AND/OR *Sequential Compression Device (SCD) 5 or more Highest Order ONE of the following medications: *Heparin 5000 units SQ TID (Preferred with Epidurals) *Enoxaparin/Lovenox 40 mg SQ daily (WT < 150 kg, CrCl > 30 mL/min) *Enoxaparin/Lovenox 30 mg SQ daily (WT < 150 kg, CrCl > 10-29 mL/min) *Enoxaparin/Lovenox 30 mg SQ BID (WT < 150 kg, CrCl > 30 mL/min) AND *Sequential Compression Device (SCD) <Mally Katz - 12/16/17 15:25> Assessment and Plan - Assessment (1) Near syncope Code(s): R55 - Syncope and collapse Status: Acute Plan: Corrected documentation: Pt with pacemaker/defibrillator, will be unable to check MRIs. Consider CTA head and neck. (2) Constipation Code(s): K59.00 - Constipation, unspecified Status: Acute (3) Hypertension Code(s): I10 - Essential (primary) hypertension Status: Chronic (4) CHF (congestive heart failure) Code(s): I50.9 - Heart failure, unspecified Status: Chronic (5) Nutrition, metabolism, and development symptoms Code(s): R63.8 - Other symptoms and signs concerning food and fluid intake Status: Acute (6) DVT prophylaxis Status: Acute <Mavis Diaz - 12/16/17 20:57> (1) Near syncope Code(s): R55 - Syncope and collapse Status: Acute Plan: Rule out TIA and stroke vs Orthostatic Hypotension Vs Vasovagal Syncope Place in observation Follow-up EKG 3 Follow-up echo Continue on telemetry Nursing bedside swallow assessment, follow-up with regular p.o. diet 02 by nasal cannula to be titrated as needed Follow continuous pulse ox Follow-up vitals every 4 SCDs, will add anticoagulation after CT results Follow-up with case management to define advanced directives Follow-up MRA of the carotids with contrast stat Follow-up CT head without contrast Follow-up MRI of the head with and without contrast Follow-up MRA of the brain without contrast Follow-up hemoglobin A1c Follow-up lipid profile Follow troponins 3 Follow-up CBC, CMP Hold aspirin until CT head results Continue statin at bedtime Continue carvedilol 6.25 mg p.o. twice daily Hold Plavix [address] results (2) Constipation Code(s): K59.00 - Constipation, unspecified Status: Acute Plan: Chronic severe constipation Continue home medications Continue as needed constipation medications (3) Hypertension Code(s): I10 - Essential (primary) hypertension Status: Chronic Plan: BP stable Continue home medications (4) CHF (congestive heart failure) Code(s): I50.9 - Heart failure, unspecified Status: Chronic Plan: History of CHF with ejection fraction of 30% Caution with IV fluids No signs of CHF exacerbation at this time, continue to monitor (5) Nutrition, metabolism, and development symptoms Code(s): R63.8 - Other symptoms and signs concerning food and fluid intake Status: Acute Plan: Fluids: Tolerating PO Electrolytes: Monitor and replete as needed Nutrition: Regular Diet GI Prophylaxis: None (6) DVT prophylaxis Status: Acute Plan: SCDs Only <Mally Katz - 12/16/17 20:02>
[2017-12-16] MEDS ORDERED: Bisacodyl 10 MG Supp RECTAL PRN (16:17)
[2017-12-16] MEDS ORDERED: Temazepam 15 MG Capsule PO PRN ×2 (17:50→21:00)
[2017-12-16] MEDS: Sod Chloride 0.9% Inj 1,000 ML IV.CONT SCH (18:27)
[2017-12-16 18:45] LABS: Chol/HDL Ratio 2.21 Ratio; HDL Cholesterol 48.7 mg/dL (40.0-60.0)
--- NOTE | 2017-12-16 19:34 | CT ---
EXAM DATE: 12/16/2017 7:28 PM EDT AGE/SEX: 82 years / Male INDICATIONS: Patient complains of feeling light headed; near syncope this morning. CLINICAL DATA: This is the patient's initial encounter. Patient reports that signs and symptoms have been present for 1 day and indicates a pain score of 0/10. MEDICAL/SURGICAL HISTORY: Cardiovascular disease. Hypertension. Myocardial infarction, T-cell lymp christine, Pacemaker. Tonsillectomy. CABG. Port, hernia repair RADIATION DOSE: 39.99 CTDI (mGy) COMPARISON: No prior exams available for comparison. TECHNIQUE: CT of the head without contrast. Using automated exposure control and adjustment of the mA and/or kV according to patient size, radiation dose was kept as low as reasonably achievable to ob tain optimal diagnostic quality images. DICOM format image data is available electronically for revi ew and comparison. FINDINGS: Cerebrum: The ventricles are normal for age. No evidence of midline shift, mass lesion, hemorrhage or acute infarction. No extraaxial fluid collections are seen. Posterior Fossa: The cerebellum and brainstem are intact. The 4th ventricle is midline. The cerebe llopontine angle is unremarkable. Extracranial: The visualized portion of the orbits is intact. Skull: The calvaria is intact. No evidence of skull fracture. CONCLUSION: 1. Age-appropriate atrophy. No acute findings. . Electronically signed by: Leif Lamas MD 12/16/2017 7:32 PM EDT
[2017-12-16] MEDS: Carvedilol 6.25 MG Tablet PO SCH (22:27)
[2017-12-17 02:30] LABS: Baso % (Auto) 0.2 % (0.0-2.0); Hematocrit 36.3 % (39.0-51.0); Hemoglobin 12.3 gm/dL (13.0-17.0); Lymph # (Auto) 0.9 th/mm3 (1.0-4.8); Lymph % (Auto) 11.7 % (9.0-44.0); Mean Corpuscular Hemoglobin 32.4 pg (27.0-34.0); Mean Corpuscular Volume 95.4 fL (80.0-100.0); Mean Platelet Volume 7.3 fL (7.0-11.0); Mono # (Auto) 0.1 th/mm3 (0.0-0.9); Mono % (Auto) 0.7 % (0.0-8.0); Neut # (Auto) 6.6 th/mm3 (1.8-7.7); Neut % (Auto) 87.4 % (16.0-70.0); Platelet Count 198 th/mm3 (150-450); Red Cell Distribution Width 12.9 % (11.6-17.2); White Blood Count 7.5 th/mm3 (4.0-11.0)
[2017-12-17 02:50] LABS: Alanine Aminotransferase 25 U/L (12-78); Anion Gap 4 meq/L (5-15); Aspartate Aminotransferase 16 U/L (15-37); Blood Urea Nitrogen 19 mg/dL (7-18); Calcium 8.6 mg/dL (8.5-10.1); Carbon Dioxide 32.7 meq/L (21.0-32.0); Chloride 105 meq/L (98-107); Glomerular Filtration Rate Greater Than 89 mL/min (>89); Glucose,Random 104 mg/dL (74-106); Potassium 4.3 meq/L (3.5-5.1); Sodium 142 meq/L (136-145)
[2017-12-17 02:55] LABS: Alkaline Phosphatase 53 U/L (45-117); Total Protein 5.9 g/dL (6.4-8.2)
--- NOTE | 2017-12-17 08:53 | P.PNFP ---
Subjective Interval history: This progress note is written in conjunction with resident H&P dated 12/16/2017. Moy Kowalski is an 82yo gentleman currently receiving chemotherapy for NonHodgkins Lymphoma with additional history of pacemaker/AICD in place admitted after presyncopal episode which occurred at [facility] yesterday morning. Overnight, he reports he is feeling better. He has gotten up to use the restroom multiple times without incident. He did have a brief episode of lightheadedness without dizziness that lasted seconds around 0600 this AM. He is requesting discharge today. On telemetry strip, he did have 2 PVCs noted. ROS: + lightheadedness, improved. No chest pain, no SOB, no palpitations. All other systems reviewed are negative. PMH/PSxH/SocHx/FamHx: Per resident H&P. Significant for: Chronic systolic CHF with last known EF 30-35% (he follows with Dr Oakes); NonHodgkins lymphoma currently treated with chemotherapy, AICD and pacemaker. 3v CABG, port placement. . Fam hx of cardiac disease. Results - Labs Result diagrams: 12/17/17 02:13 12/17/17 02:13 Abnormal lab results 12/16/17 12/16/17 12/16/17 Range/Units 11:55 11:55 11:55 RBC 3.61 L (4.50-5.90) mil/mm3 Hgb 11.8 L (13.0-17.0) gm/dL Hct 34.8 L (39.0-51.0) % Neut % (Auto) 92.1 H (16.0-70.0) % Lymph % (Auto) 7.1 L (9.0-44.0) % Lymph # (Auto) 0.5 L (1.0-4.8) th/mm3 APTT 22.8 L (24.3-30.1) sec Carbon Dioxide (21.0-32.0) meq/L Anion Gap (5-15) meq/L BUN (7-18) mg/dL Estimated GFR 82 L (>89) mL/min Calcium 8.4 L (8.5-10.1) mg/dL Troponin I Less than 0.02 L (0.02-0.05) ng/mL B-Natriuretic Peptide (0-100) pg/mL Total Protein 6.0 L D (6.4-8.2) g/dL Albumin 3.0 L (3.4-5.0) g/dL Cholesterol (120-200) mg/dL Urine Mucus (Occasional) /lpf 12/16/17 12/16/17 12/16/17 Range/Units 11:55 13:00 20:20 RBC (4.50-5.90) mil/mm3 Hgb (13.0-17.0) gm/dL Hct (39.0-51.0) % Neut % (Auto) (16.0-70.0) % Lymph % (Auto) (9.0-44.0) % Lymph # (Auto) (1.0-4.8) th/mm3 APTT (24.3-30.1) sec Carbon Dioxide (21.0-32.0) meq/L Anion Gap (5-15) meq/L BUN (7-18) mg/dL Estimated GFR (>89) mL/min Calcium (8.5-10.1) mg/dL Troponin I Less than 0.02 L (0.02-0.05) ng/mL B-Natriuretic Peptide (0-100) pg/mL Total Protein (6.4-8.2) g/dL Albumin (3.4-5.0) g/dL Cholesterol 108 L (120-200) mg/dL Urine Mucus Few H (Occasional) /lpf 12/17/17 12/17/17 12/17/17 Range/Units 02:13 02:13 02:13 RBC 3.80 L (4.50-5.90) mil/mm3 Hgb 12.3 L (13.0-17.0) gm/dL Hct 36.3 L (39.0-51.0) % Neut % (Auto) 87.4 H (16.0-70.0) % Lymph % (Auto) (9.0-44.0) % Lymph # (Auto) 0.9 L (1.0-4.8) th/mm3 APTT (24.3-30.1) sec Carbon Dioxide 32.7 H (21.0-32.0) meq/L Anion Gap 4 L (5-15) meq/L BUN 19 H (7-18) mg/dL Estimated GFR (>89) mL/min Calcium (8.5-10.1) mg/dL Troponin I Less than 0.02 L (0.02-0.05) ng/mL B-Natriuretic Peptide 435 H (0-100) pg/mL Total Protein 5.9 L (6.4-8.2) g/dL Albumin 3.0 L (3.4-5.0) g/dL Cholesterol (120-200) mg/dL Urine Mucus (Occasional) /lpf Short CBC 12/16/17 12/17/17 Range/Units 11:55 02:13 WBC 6.5 7.5 (4.0-11.0) th/mm3 Hgb 11.8 L 12.3 L (13.0-17.0) gm/dL Hct 34.8 L 36.3 L (39.0-51.0) % Plt Count 193 198 (150-450) th/mm3 BMP 12/16/17 12/17/17 11:55 02:13 Sodium 141 142 Potassium 4.4 4.3 Chloride 105 105 Carbon Dioxide 31.2 32.7 H BUN 18 19 H Creatinine 0.89 0.79 Calcium 8.4 L 8.6 Cardiac Enzymes 12/16/17 12/16/17 12/17/17 Range/Units 11:55 20:20 02:13 Total Creatine Kinase 41 (39-308) U/L Troponin I Less than 0.02 L Less than 0.02 L Less than 0.02 L (0.02-0.05) ng/mL Liver Function 12/16/17 12/17/17 Range/Units 11:55 02:13 Total Bilirubin 0.8 0.7 (0.2-1.0) mg/dL AST 16 16 (15-37) U/L ALT 24 25 (12-78) U/L Alkaline Phosphatase 52 53 (45-117) U/L Albumin 3.0 L 3.0 L (3.4-5.0) g/dL Urine 12/16/17 Range/Units 13:00 Urine Color Yellow (Yellw/Straw) Urine Clarity Clear (Clear) Urine pH 6.0 (5.0-8.5) Ur Specific [place] 1.009 (1.002-1.035) Urine Protein Negative (Neg-Trace) mg/dL Urine Glucose (UA) Negative (Negative) mg/dL - Imaging Impressions Head CT 12/16/17 00:00 CONCLUSION: 1. Age-appropriate atrophy. No acute findings. . Chest X-Ray 12/16/17 11:21 CONCLUSION: 1. Mild cardiomegaly with no evidence of pulmonary edema. 2. The left lateral chest wall and costophrenic angle cut off the exam. Physical Exam Vital signs: Vital Signs 12/16/17 10:44 12/16/17 11:55 12/16/17 12:09 Temperature Pulse Rate 60 60 Respiratory Rate 16 15 Blood Pressure 111/56 L 103/59 L Pulse Oximetry 96 95 98 12/16/17 16:33 12/16/17 17:41 12/16/17 20:00 Temperature 97.4 F L 98 F Pulse Rate 57 L 78 Respiratory Rate 19 15 Blood Pressure 121/65 125/70 Pulse Oximetry 98 98 98 12/16/17 22:40 12/17/17 00:00 12/17/17 04:00 Temperature 97.9 F 97.7 F Pulse Rate 60 64 Respiratory Rate 15 15 Blood Pressure 118/57 L 100/59 L Pulse Oximetry 98 96 97 12/17/17 07:30 Temperature 98 F Pulse Rate 58 L Respiratory Rate 17 Blood Pressure 100/58 L Pulse Oximetry 99 Intake & Output 12/16/17 12/17/17 12/17/17 18:59 06:59 18:59 Weight 96.162 kg 96.3 kg Other: Date of Last Bowel Movement 12/16/17 Narrative: Per resident H&P. Significant for: In NAD, no resp distress, nontoxic. RRR, S1 S2. Pacemaker in place. CTAB. CN II-XII WNL. 5/5 muscle strength in upper and lower extremities. Sensation to light touch in tact throughout. Cerebellum intact with finger to nose. Negative Babinski. Negative pronator drift. Assessment and Plan - Assessment (1) Near syncope Code(s): R55 - Syncope and collapse Status: Acute Plan: Resolved. Likely orthostatic vs vasovagal. Pt denies AICD firing, but will have device interrogated. Pt with completely normal neurologic exam. No indication for CTA brain or neck at this time. Diagnostic evaluation: CT head (without contrast): negative Telemetry: paced rhythm, with 2 PVCs Troponins: reassuring Carotid US: no significant findings Pacemaker interrogation: pending Echo: pending Orthostatic vital signs: pending (2) Constipation Code(s): K59.00 - Constipation, unspecified Status: Chronic Plan: Chronic severe constipation Continue home medications Continue as needed constipation medications. (3) Hypertension Code(s): I10 - Essential (primary) hypertension Status: Chronic Plan: BP stable. Home medication of coreg may contributing to symptoms - Low BP and HR in the 60s. Will hold for now and PCP can decide to resume if vital signs improve. (4) CHF (congestive heart failure) Code(s): I50.9 - Heart failure, unspecified Status: Chronic Plan: History of CHF with ejection fraction of 30%. Followed as an outpatient with Dr Oakes. Caution with IV fluids No signs of CHF exacerbation at this time, continue to monitor. Echo ordered. (5) Non-Hodgkin lymphoma Code(s): C85.90 - Non-Hodgkin lymphoma, unspecified, unspecified site Status: Chronic Plan: Currently being treated with chemotherapy. No acute intervention needed during this hospitalization. To follow up with hem-onc as per routine. - Assessment and Plan Discharge Planning: Possibly today, as symptoms have resolved. Pending evaluation and results as per A/P - Attending Attestation Patient seen, examined, and discussed with resident team. (3) Hypertension Qualifiers: Hypertension type: essential hypertension Qualified Code(s): I10 - Essential (primary) hypertension (4) CHF (congestive heart failure) Qualifiers: Heart failure type: systolic Heart failure chronicity: chronic Qualified Code(s): I50.22 - Chronic systolic (congestive) heart failure (5) Non-Hodgkin lymphoma Qualifiers: Non-Hodgkin lymphoma type: unspecified type
[2017-12-17] MEDS: Carvedilol 6.25 MG Tablet PO SCH (09:57)
[2017-12-17] MEDS: Sod Chloride 0.9% Inj 1,000 ML IV.CONT SCH (09:57)
--- NOTE | 2017-12-17 10:34 | US ---
EXAM DATE: 12/17/2017 10:19 AM EDT AGE/SEX: 82 years / Male INDICATIONS: Near syncope. CLINICAL DATA: This is the patient's initial encounter. Patient reports that signs and symptoms have been present for 1 day and indicates a pain score of 0/10. MEDICAL/SURGICAL HISTORY: Hypertension. Congestive heart failure. Cardiovascular disease. Hy perlipidemia. T-Cell Lymphoma. CABG. Pacemaker. Port-A-Cath placement. COMPARISON: No prior exams available for comparison. VELOCITY PARAMETERS: ICA/CCA Ratio: Right 1.5 , Left 1.3 ICA: Right 75 cm/sec, Left 75 cm/sec CCA: Right 50 cm/sec, Left 58 cm/sec ECA: Right 90 cm/sec, Left 117 cm/sec Vertebral: Right 62 cm/sec antegrade, Left 56 cm/sec antegrade FINDINGS: Right Carotid: Mild scattered calcified arteriosclerotic plaque is visualized.The waveforms are with in normal limits. Left Carotid: Mild scattered calcified arteriosclerotic plaque is visualized. The waveforms are with in normal limits. Other: None. CONCLUSION: Bilateral scattered calcified atheromatous plaque without a hemodynamically significant stenosis invo lving either carotid artery. Antegrade flow involving both vertebral arteries. Electronically signed by: Leif Hercules MD 12/17/2017 10:33 AM EDT
[2017-12-17 12:56] VITALS: RESP 22
[2017-12-17 15:39] VITALS: BP 101/53; PULSE 60; TEMP 97.4; O2SAT 96
[2017-12-17 16:23] LABS: Hemoglobin A1c 5.4 % (4.3-6.0)
--- NOTE | 2017-12-17 18:39 | ECHRPT ---
Indication: CARDIOMYOPATHY CONCLUSIONS The left ventricular systolic function is severely reduced with an estimated ejection fraction in th e range of 25-30%. There is global left ventricular dysfunction. There is a flattened septum in diastole consistent with right ventricle volume overload. The right ventricular systoilc function is mildly decreased. Mildly dilated proximal ascending aorta. Mild mitral valve regurgitation. There is mild tricuspid valve regurgitation. BP: / HR: Rhythm: Sinus MEASUREMENTS (Male / Female) Normal Values Technical Quality:Fair 2D ECHO LV Diastolic Diameter PLAX 5.4 cm 4.2 - 5.9 / 3.9 - 5.3 cm LV Systolic Diameter PLAX 4.8 cm IVS Diastolic Thickness 1.3 cm 0.6 - 1.0 / 0.6 - 0.9 cm LVPW Diastolic Thickness 0.9 cm 0.6 - 1.0 / 0.6 - 0.9 cm LV Relative Wall Thickness 0.4 RV Internal Dim ED PLAX 2.9 cm LVOT Diameter 2.6 cm Aortic Root Diameter 4.0 cm LA Systolic Diameter LX 2.8 cm 3.0 - 4.0 / 2.7 - 3.8 cm M-MODE AV Cusp Separation MM 2.5 cm DOPPLER AV Peak Velocity 130.0 cm/s AV Peak Gradient 6.8 mmHg AV Mean Gradient 4.0 mmHg AV Velocity Time Integral 25.5 cm LVOT Peak Velocity 67.7 cm/s LVOT Peak Gradient 1.8 mmHg LVOT Velocity Time Integral 13.6 cm AV Area Cont Eq vti 2.8 cm AV Area Cont Eq pk 2.8 cm Mitral E Point Velocity 52.8 cm/s Mitral A Point Velocity 52.8 cm/s Mitral E to A Ratio 1.0 LV E' Lateral Velocity 10.2 cm/s Mitral E to LV E' Lateral Ratio 5.2 LV E' Septal Velocity 5.6 cm/s Mitral E to LV E' Septal Ratio 9.5 TR Peak Velocity 254.0 cm/s TR Peak Gradient 25.8 mmHg Right Atrial Pressure 10.0 mmHg Pulmonary Artery Systolic Pressu 35.8 mmHg Right Ventricular Systolic Press 35.8 mmHg PV Peak Velocity 59.4 cm/s PV Peak Gradient 1.4 mmHg FINDINGS LEFT VENTRICLE Normal left ventricular size. Mild concentric left ventricular hypertrophy. The left ventricular systolic function is severely reduced with an estimated ejection fraction in th e range of 25-30%. There is global left ventricular dysfunction. There is a flattened septum in diastole consistent with right ventricle volume overload. RIGHT VENTRICLE The right ventriclar size is upper limits of normal. The right ventricular systoilc function is mildly decreased. A pacemaker wire is noted. LEFT ATRIUM The left atrial size is normal. RIGHT ATRIUM The right atrium is not well visualized. ATRIAL SEPTUM No atrial level shunt is demonstrated by color flow Doppler interrogation. AORTA Mildly dilated proximal ascending aorta. MITRAL VALVE Structurally normal mitral valve. No mitral valve stenosis. Mild mitral valve regurgitation. AORTIC VALVE Trileaflet aortic valve. No aortic valve stenosis or regurgitation. TRICUSPID VALVE Structurally normal tricuspid valve. There is mild tricuspid valve regurgitation. The estimated pulmonary arterial pressure is 35.8 mmHg. PULMONARY VALVE Trivial pulmonary valve regurgitation. VESSELS The inferior vena cava was not well visualized. PERICARDIUM No pericardial effusion. Jose Mccain DO (Electronically Signed) Final Date:17 December 2017 18:38
--- NOTE | 2017-12-18 00:22 | ECG ---
Date Performed: 12/16/2017 Time Performed: 18:04:20 PTAGE: 82 years EKG: ELECTRONIC ATRIAL PACEMAKER ELECTRONIC VENTRICULAR PACEMAKER ABNORMAL RHYTHM ECG PREVIOUS TRACING : 12/16/2017 11.12 Since the previous tracing, no significant change noted DOCTOR: Jose Mccain Interpretating Date/Time 12/18/2017 00:20:49
--- NOTE | 2017-12-18 00:30 | ECG ---
Date Performed: 12/16/2017 Time Performed: 11:12:41 PTAGE: 82 years EKG: ELECTRONIC ATRIAL PACEMAKER ELECTRONIC VENTRICULAR PACEMAKER ABNORMAL RHYTHM ECG Compared t o PREVIOUS TRACING , now with AV pacing DOCTOR: Jose Mccain Interpretating Date/Time 12/18/2017 00:29:31
== END 2017-12-17 18:44 | disposition home or self-care (01) ==
LOC: NEDA 10:38 → NEPC 10:38 → N05 10:38 → NEDA 17:12 → N05 17:14
PROVIDERS: ADMIT Family Medicine; ATTEND Family Medicine